=== PATIENT | male | born 1985 | race Caucasian/White ===

== ENCOUNTER 2017-07-01 14:17 | Emergency (ER) | payer OTHER ==
--- NOTE | ~2017-07-01 | CT98 ---
[facility] A Service of [facility] & [facility] RADIOLOGY TEXT RESULTS PATIENT: MAYELIN YUAN JR LOCATION: SED : 83 UNIT #: [id number] AGE: [address]: Shweta Diana SEX: M ORDER DR: [id number] [address] [id number] MR#: [id number] Acc #: [id number] NAME: MAYELIN YUAN JR : 1985 SEX: M STUDY DATE/TIME: 07/01/2017 14:43 UNIT: SED ROOM: STUDY DESCRIPTION: CT Lumbar Spine Wo Cont Attending Physician: Shweta Diana Pa-C Ordering Physician: Shweta Diana Pa-C Primary Care Physician: Rosemary Parker M.D. MEDICAL IMAGING REPORT This report is preliminary unless electronic signature is present. EXAM CT lumbar spine without contrast HISTORY Chronic back pain for over 9 years, bent down yesterday, felt a pop, now with low back pain, left leg numbness. FINDINGS Thin-section axial images performed through the lumbar spine without contrast. Multiplanar reconstructed images reviewed at a workstation. This CT exam was performed with one or more of the following radiation dose reduction techniques: Automatic exposure control, adjustment of mA and/or kV according to patient size, and iterative reconstruction. No fracture or malalignment. No lytic or blastic lesions. No spondylolysis or spondylolisthesis. L1-2, L2-3 and L3-4 disc levels unremarkable. At L4-5, there is a circumferential disc bulge with a left paracentral prominence with effacement of the thecal sac and probable impingement of the descending left L5 nerve root as well as possible impingement of the exiting L4 nerve root. At L5-S1, there is a broad-based posterior disc bulge, mild central canal stenosis and mild bilateral foraminal stenosis. Paravertebral soft tissues unremarkable. Visualized SI joints appear normal. IMPRESSION 1. Posterior disc bulging L4-5 with a left paracentral component which asymmetrically deforms the thecal sac and may impinge the descending left L5 nerve root. Correlate with patient's clinical presentation. 2. L5-S1 posterior disc bulging with mild bilateral foraminal narrowing but no definite nerve root impingement. Please note non-myelographic STS. [facility] A Service of [facility] & [facility] RADIOLOGY TEXT RESULTS PATIENT: MAYELIN YUAN JR [place] [facility] [place] [birth year] UNIT #: [id number] AGE: [address]: Shweta Diana PAC SEX: M ORDER DR: CT is somewhat limited for evaluation of lumbar disc disease. Dictated by... Keo Wen M.D. THIS IS AN ELECTRONICALLY VERIFIED REPORT Keo Wen M.D. at 07/02/2017 10:15 AM GRACE/jesus TD: 07/02/2017 03:10 JOB #: [id number] MEDICAL IMAGING REPORT Page 1 of 1
[~2017-07-01 14:17] MED LIST: ALBUTEROL MININEB; ALBUTEROL17 GM INH; DECADRON PO; FLEXERIL10 M1 PO; FLEXERIL10 MG PO; FLOVENT7.9 GM 44; GABAPENTIN300 MG PO; IBUPROFEN800 MG PO; NAPROSYN500 MG PO; NASONEX17 GM; PREDNISONE PO; PREDNISONE10 MG PO; PROVENTIL17 GM INH; TESSALON PERLE100 M1 PO; VIBRAMYCIN100 M1 PO; VOLTAREN75 MG PO; [UNRECOGNIZED DRUG - REMARK]
[2017-07-01] MEDS ORDERED: FLEXERIL10 MG (14:21)
[2017-07-01] MEDS ORDERED: BACLOFEN20 M1 (14:21)
== END 2017-07-01 15:55 | disposition home or self-care (01) ==
LOC: SED 14:17
DX: M54.16 Radiculopathy, lumbar region (principal); J45.909 Unspecified asthma, uncomplicated; J44.9 Chronic obstructive pulmonary disease, unspecified; F17.210 Nicotine dependence, cigarettes, uncomplicated; Z98.890 Other specified postprocedural states; Z88.0 Allergy status to penicillin; X50.1XXA Overexertion from prolonged static or awkward postures, initial encounter
CPT/HCPCS: 72131; 96372; 99284; J1885; J2360